=== PATIENT | female | born 1995 | race Caucasian/White ===

== ENCOUNTER 2022-08-19 18:32 | Emergency (ER) | payer SELFPAY ==
--- NOTE | ~2022-08-19 | US_ITS ---
Pelvic ultrasound. Clinical History: First trimester , ectopic Technique: Realtime transabdominal and transvaginal scanning of the pelvis was performed. Color flow Doppler and Doppler spectral analysis were performed. Findings: The uterus is anteverted. The endometrial stripe has a thickness of 23 mm. Endometrial con tents are heterogeneous, suggestive of blood products/hematoma. No well-formed gestational sac identi fied. The right ovary measures 3.9 x 1.8 x 2.3 cm. No significant right ovarian or adnexal mass is seen. The left ovary measures 5.2 x 2.0 x 2.4 cm. No significant left ovarian or adnexal mass is seen. There is no evidence of free fluid in the cul de sac. Impression: Endometrial cavity is distended by apparent blood products/hematoma, which is most consistent with sp ontaneous . No definite retained products of conception identified. Reviewed, dictated and finalized at location [facility] [employer] Impression: Endometrial cavity is distended by apparent blood products/hematoma, which is m ost consistent with spontaneous . No definite retained products of conc eption identified.
[2022-08-19 18:35] VITALS: BP 128/78; PULSE 99; RESP 22; TEMP 36.2; O2SAT 100
[2022-08-19 19:26] LABS: Appearance Urine Clear (Clear); Bilirubin Urine Negative (Negative); Blood Urine 3+ (Negative); Color Urine Yellow (Yellow); Glucose Urine UA Negative (Negative); Ketones Urine Negative (Negative); Leukocyte Esterase Ur Negative LEU/UL (Negative); Nitrate Urine Negative (Negative); Protein Urine Negative (Negative); Urobilinogen Urine 0.2 mg/dL (<2.0)
[2022-08-19 19:30] LABS: Bacteria Urine Trace /hpf; Mucus Urine Rare /lpf; RBC Urine 0-2 /hpf (0-2); Squamous Epithelial Cell Urine Rare /hpf (Few); WBC Urine 0-3 /hpf
[2022-08-19 19:31] LABS: Add Urine Microscopic? YES
--- NOTE | 2022-08-19 19:40 | PC.NURSE ---
Pt moved into the family service room, pt cursing and being belligerent. Family stated that pt may be under the influence of alcohol and they are attempting to keeping the pt calmed down.
[2022-08-19 20:35] VITALS: BP 119/81; PULSE 83; RESP 16; TEMP 36.6; O2SAT 97
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
[2022-08-19 22:02] VITALS: BP 126/95; PULSE 98; RESP 23; O2SAT 99
[2022-08-19 22:12] LABS: Basophils Absolute Auto 0.1 K/mm3 (0.0-0.1); Basophils Percent Auto 0.9 % (0.2-1.2); Eosinophils Absolute Auto 0.1 K/mm3 (0-0.3); Eosinophils Percent Auto 1.3 % (0-4.4); Hematocrit 41.8 % (37.0-47.0); Hemoglobin 14.5 g/dL (12.0-15.0); Immature Granulocyte Absolute 0.02 K/mm3 (0.00-0.031); Immature Granulocyte Percent A 0.3 % (0-0.5); Lymphocytes Absolute Auto 2.83 K/mm3 (0.9-3.2); Lymphocytes Percent Auto 40.4 % (18.3-44.2); Mean Corpuscular HGB Conc 34.7 g/dl (32-36); Mean Corpuscular Hemoglobin 32.8 pg (26-34); Mean Corpuscular Volume 94.6 fl (80-100); Mean Platelet Volume 9.7 fl (7.4-10.4); Monocytes Absolute Auto 0.6 K/mm3 (0.1-0.6); Monocytes Percent Auto 8.3 % (2.6-8.5); Neutrophils Absolute Auto 3.4 K/mm3 (1.3-6.7); Neutrophils Percent Auto 48.8 % (45.5-73.1); Platelet Count Result 220 k/mm3 (150-375); Red Blood Count 4.42 M/mm3 (4.2-5.4); Red Cell Distribution Width 11.9 % (11.5-14.5)
[2022-08-19] MEDS: LORazepam (*CRX) 0.5 MG TABLET PO (22:16)
[2022-08-19 22:21] LABS: Alanine Aminotransferase 32 U/L (6-35); Albumin Level 4.3 g/dL (3.5-5.1); Alkaline Phosphatase 58 U/L (38-126); Anion Gap 9 mmol/L (8-16); Aspartate Amino Transferase 51 U/L (14-36); Bilirubin,Total 0.4 mg/dL (0.2-1.3); Blood Urea Nitrogen 8 mg/dL (7-17); Calcium 8.3 mg/dL (8.4-10.2); Carbon Dioxide 22 mmol/L (22-30); Chloride 112 mmol/L (98-107); Estimated CRCL calculation 121 ml/min; Estimated Glomerular Filt Rate > 60; Glucose 98 mg/dL (65-110); Potassium 3.8 mmol/L (3.4-5.0); Sodium 143 mmol/L (137-145)
[2022-08-19 22:23] LABS: INR 1.2; Prothrombin Time 15.1 Seconds (11.1-14.7)
[2022-08-19 22:24] LABS: Partial Thromboplastin Time 26.4 SECONDS (22.3-36.8)
[2022-08-19] MEDS: HYDROcodone/acetaminophen (*CRX) 5-325 MG TABLET 1 TAB PO (22:42)
[2022-08-19] MEDS: ONDANSETRON HCL ODT 4 MG TABLET PO (22:47)
[2022-08-19 23:36] VITALS: BP 134/106; PULSE 105; RESP 16; O2SAT 99
--- NOTE | 2022-08-19 23:44 | PC.NURSE ---
Radiology notified for room 7 need for ultrasound at 23:42
--- NOTE | 2022-08-20 00:30 | PC.NURSE ---
Pt in US at this time.
[2022-08-20 01:11] VITALS: BP 144/95; PULSE 95; RESP 18; O2SAT 98
[2022-08-20] MEDS: ONDANSETRON INJ 4 MG/2 ML VIAL IV PUSH (01:12)
--- NOTE | 2022-08-20 01:32 | PC.NURSE ---
Pt requesting more pain medication. [employer]LE Ailyn notified.
[2022-08-20] MEDS: HYDROcodone/acetaminophen (*CRX) 5-325 MG TABLET 1 TAB PO (01:53)
[2022-08-20 01:55] VITALS: BP 135/89; PULSE 90; RESP 18; TEMP 37.2; O2SAT 99
== END 2022-08-20 01:56 | disposition home or self-care (01) ==
PROVIDERS: Emergency Medicine; Emergency Provider Physician Assistant
DX: O07.4 Failed attempted termination of pregnancy without complication (principal)
CPT/HCPCS: 36415; 76801; 76817; 80053; 81001; 81025; 84702; 85025; 85610; 85730; 86850; 86900; 86901; 96374; 99284; A9270; J2405

== ENCOUNTER 2023-12-31 14:32 | Emergency (ER) | payer SELFPAY ==
--- NOTE | 2023-12-31 14:42 | ED.FEMALEGU ---
HPI - Female Genitourinary General Chief complaint: Urogenital-Female Stated complaint: tampon stuck Time Seen by Provider: 12/31/23 14:50 Source: patient and RN notes reviewed Mode of arrival: ambulatory Limitations: no limitations History of Present Illness HPI Narrative: 28-year-old female presents with concern for tampon stuck in her vaginal canal. She reports she put a tampon in last week, she waited for her. Finished before being seen. She denies any foul smell. Reports small amount of discharge. She denies abdominal pain. MD elicited complaint: other (FB) Related Data Allergies Allergy/AdvReac Type Severity Reaction Status Date / Time No Known Allergies Allergy Unknown Verified 12/31/23 14:47 Review of Systems Review of Systems: CONSTITUTIONAL: Denies malaise, chills, sweats, or fever. CARDIOVASCULAR: Denies chest pain, palpitations, or edema. RESPIRATORY: Denies cough or dyspnea. GASTROINTESTINAL: Denies abdominal pain, nausea, vomiting, diarrhea GENITOURINARY: Denies dysuria, frequency, urgency, suprapubic pressure. Denies flank pain or hematuria. Reports small amount of vaginal discharge SKIN: Denies rash or itching. MUSCULOSKELETAL: Denies back pain or myalgia. All systems reviewed & are unremarkable except as noted in HPI and below PMFSH Family History Family History (Updated 02/18/14 @ 07:13 by DOCTOR UNKNOWN) Grandparent Family history of kidney stones Diabetes mellitus Mother Family history of anemia Sibling Family history of attention deficit hyperactivity disorder (ADHD) Family history of seizure disorder Other Asthma Family history of malignant neoplasm of bone Family history of malignant neoplasm of male breast Hypertension Social History Social History Smoking status: Never smoker Second hand tobacco smoke exposure: No Alcohol intake: never Comments At time of signature, agree with nursing past medical, surgical, social and family history. There is no relevant family history pertinent to the presenting complaint Exam Narrative: GENERAL: Well-appearing, well-nourished, and in no acute distress. HEAD: Normocephalic. EYES: PERRLA, conjunctivae clear. NECK: Supple. No lymphadenopathy CHEST: Clear to auscultation. No respiratory distress. HEART: Regular rate and rhythm. ABDOMEN: Soft, nontender upon palpation SKIN: Warm, dry, no rash. NEURO: Alert and oriented x3. PSYCH: Normal mood and affect : External Female Exam: normal external appearance Speculum Exam - Vagina: normal appearance of the vagina, normal palpation and abnormal vaginal discharge other (beige) Speculum Exam - Cervix: normal appearance of the cervix Other: No foreign body palpable or visible Course Course Emergency Course: Patient is aware of diagnosis, understands and agrees to treatment plan. Anticipatory guidance given. Patient agrees to follow-up as directed and is aware of reasons to seek care at the emergency department. Portions of this record may have been created with voice recognition software Level of Care: Express Care Visit Vital Signs Vital signs: Reviewed. MDM - Female Genitourinary MDM Narrative Medical decision making narrative: Exam findings show no acute concerns or changes; patient is non-toxic appearing and is in no distress. Patient is appropriate for outpatient treatment and follow-up. Differential Diagnosis Differential diagnosis: Likely urinary tract infection and cystitis Critical Care Time Critical Care Time Critical Care Time: No Discharge Plan Discharge Clinical Impression: Physically well but worried Patient Disposition: Home, Self-Care Condition: Stable Instructions: General Patient Instructions Additional Instructions: 1) Please follow-up with your primary care doctor you have any new concerns. 2) If you have any urgent concerns please go to the ER. 3) a swab was sent for bacterial vaginosis, sick contacts positiv
[2023-12-31 14:47] VITALS: BP 139/99; PULSE 86; RESP 18; TEMP 36.4; O2SAT 100
[2024-01-01 19:34] LABS: Bacterial Vaginosis NEGATIVE (NEGATIVE)
== END 2023-12-31 15:15 | disposition home or self-care (01) ==
PROVIDERS: Emergency Provider Nurse Practitioner
DX: Z04.89 Encounter for examination and observation for other specified reasons (principal); N89.8 Other specified noninflammatory disorders of vagina
CPT/HCPCS: 81513; 99213; G0463